=== PATIENT | male | born 1960 | race Caucasian/White ===

== ENCOUNTER → 2017-02-17 | Outpatient (CLI) | payer MEDICAID ==
[~2017-02-17] MED LIST: FLEXERIL10 MG PO; NEURONTIN 300M300 MG PO; PERCOCET 5/3251 EACH PO; XANAX 1MG TABLET1 MG PO
[2017-02-17 21:16] LABS: AMPHETAMINES/METAMPHETAMINES NEGATIVE ng/mL (<1000)
== END ==
LOC: LAB 20:08
PROVIDERS: Emergency Medicine
DX: Z79.899 Other long term (current) drug therapy (principal)

== ENCOUNTER → 2017-03-07 | Outpatient (CLI) | payer MEDICAID ==
[2017-03-07 18:51] LABS: AMPHETAMINES/METAMPHETAMINES NEGATIVE ng/mL (<1000)
== END ==
LOC: LAB 17:42
PROVIDERS: Emergency Medicine
DX: Z79.899 Other long term (current) drug therapy (principal)

== ENCOUNTER → 2017-04-02 | Outpatient (CLI) | payer MEDICAID ==
--- NOTE | 2017-04-02 20:02 | RADIOLOGY REPORT PS360 ---
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 There is an impacted distal radial fracture which is mildly displaced. 7 mm anterior displacement of the distal fracture fragment. Fracture may be subacute. Nonspecific subcortical cystic changes are present in the scaphoid and capitate. IMPRESSION: Impacted displaced distal radial fracture. Fracture line is not very sharp and may be subacute.
--- NOTE | 2017-04-02 20:02 | RADIOLOGY REPORT PS360 ---
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 There is an impacted distal radial fracture which is mildly displaced. 7 mm anterior displacement of the distal fracture fragment. Fracture may be subacute. Nonspecific subcortical cystic changes are present in the scaphoid and capitate. IMPRESSION: Impacted displaced distal radial fracture. Fracture line is not very sharp and may be subacute.
== END ==
LOC: RAD 16:36
DX: Z79.899 Other long term (current) drug therapy (principal)

== ENCOUNTER → 2017-04-07 | Outpatient (CLI) | payer MEDICAID ==
[2017-04-07 22:34] LABS: AMPHETAMINES/METAMPHETAMINES NEGATIVE ng/mL (<1000)
== END ==
LOC: LAB 17:47
PROVIDERS: Emergency Medicine
DX: Z79.899 Other long term (current) drug therapy (principal)

== ENCOUNTER → 2017-05-05 | Outpatient (CLI) | payer MEDICAID ==
[2017-05-05 22:51] LABS: AMPHETAMINES/METAMPHETAMINES NEGATIVE ng/mL (<1000)
== END ==
LOC: LAB 15:38
PROVIDERS: Emergency Medicine
DX: Z79.899 Other long term (current) drug therapy (principal)